=== PATIENT | male | born 1975 | race African-American/Black ===

== ENCOUNTER 2020-04-25 00:38 | Inpatient (IN) | payer MEDICAID, OTHER ==
[~2020-04-25] VITALS: Ht 190.5 cm; Wt 156.5 kg
[2020-04-25 02:06] LABS: *AMPHETAMINES SCREEN URINE NEGATIVE (NEGATIVE); *BARBITURATES SCREEN URINE NEGATIVE (NEGATIVE); *BENZODIAZEPINES SCREEN URINE NEGATIVE (NEGATIVE); *COCAINE SCREEN URINE NEGATIVE (NEGATIVE); CANNABINOID URINE SCREEN NEGATIVE (NEGATIVE); METHADONE URINE SCREEN NEGATIVE (NEGATIVE); OPIATES URINE SCREEN NEGATIVE (NEGATIVE); PHENCYCLIDINE URINE SCREEN NEGATIVE (NEGATIVE)
[2020-04-25 02:16] LABS: CLARITY URINE CLEAR (CLEAR); COLOR URINE YELLOW (YELLOW); KETONES URINE NEGATIVE (NEGATIVE); LEUKOCYTE ESTERASE URINE NEGATIVE (NEGATIVE); NITRITE URINE NEGATIVE (NEGATIVE); OCCULT BLOOD URINE NEGATIVE (NEGATIVE); PROTEIN URINE TRACE (NEGATIVE); SPECIFIC GRAVITY URINE 1.031 (1.005-1.030); UROBILINOGEN URINE 0.2 E.U./dL (0.2-1.0)
[2020-04-25 02:36] LABS: HEMATOCRIT. 40.6 % (42.0-52.0); HEMOGLOBIN. 13.7 g/dL (14.0-18.0); MEAN CORPUSCULAR HEMOGLOBIN 30.9 pg (28.0-32.0); MEAN CORPUSCULAR VOLUME 91.3 fL (80.0-94.0); MEAN PLATELET VOLUME 9.2 fl (7.4-10.4); PLATELET 222 x1000/uL (130-400); RED BLOOD CELL COUNT 4.45 mill/uL (4.7-6.1); RED CELL DISTRIBUTION WIDTH 13.8 % (11.6-14.6)
[2020-04-25 02:42] LABS: CHLORIDE 98 mEq/L (98-107)
[2020-04-25 02:46] LABS: ETHANOL BLOOD < 10 mg/dL
[2020-04-25 02:53] LABS: PARTIAL THROMBOPLASTIN TIME 24.6 sec (23.4-31.0); PROTHROMBIN TIME 10.4 sec (9.6-11.0)
[2020-04-25] MEDS ORDERED: INSULIN LISPRO 100 UNITS/ML SUBCUT NR (03:15)
[2020-04-25] MEDS ORDERED: LEVETIRACETAM 500MG PREMIX 100 ML IV ONE (04:30)
[2020-04-25] MEDS ORDERED: LORAZEPAM 2MG/ML CPJ IV ONE (04:30)
[2020-04-25 05:50] LABS: PLATELET ESTIMATE NORMAL
[2020-04-25 08:30] VITALS: BP 186/104
[2020-04-25] MEDS ORDERED: ENOXAPARIN 40MG/0.4ML SYR SUBCUT SCH (09:00)
[2020-04-25] MEDS ORDERED: IPRATROPIUM/ALBUTEROL 0.5-3(2.5)MG/3ML NEB HHN PRN (09:00)
[2020-04-25] MEDS ORDERED: LEVETIRACETAM 500 MG in SODIUM CHLORIDE 0.9% 100 ML IV SCH (09:00)
[2020-04-25] MEDS ORDERED: ACETAMINOPHEN 325MG TABLET PO PRN (09:00)
[2020-04-25] MEDS ORDERED: DIPHENHYDRAMINE 50MG/ML VIAL IV PRN (09:00)
[2020-04-25] MEDS ORDERED: ONDANSETRON HCL 4MG/2ML INJ IV PRN (09:00)
[2020-04-25 09:30] VITALS: BP 208/113
[2020-04-25] MEDS ORDERED: LEVETIRACETAM 500MG PREMIX 100 ML IV SCH (10:00)
[2020-04-25] MEDS: CLONIDINE 0.1MG TABLET PO PRN ×2 (11:49→16:45)
[2020-04-25] MEDS: ENALAPRIL 1.25MG/ML VIAL 1ML IV PRN ×2 (11:49→16:45)
[2020-04-25] MEDS: ENOXAPARIN 40MG/0.4ML SYR SUBCUT SCH ×2 (11:57→21:09)
[2020-04-25 12:00] VITALS: BP 200/97
[2020-04-25] MEDS: INSULIN GLARGINE UD 100 UNITS/ML SYR SUBCUT SCH ×2 (12:00→21:18)
[2020-04-25 16:00] VITALS: BP 198/122
[2020-04-25] MEDS: PHENYTOIN SODIUM 300MG in SODIUM CHLORIDE 0.9% 50ML IV SCH (17:15)
[2020-04-25 20:00] VITALS: BP 157/106
[2020-04-25] MEDS ORDERED: DEXTROSE 50% WATER 50ML SYRINGE IV PRN (20:00)
[2020-04-25] MEDS: BLOOD SUGAR DIAGNOSTIC STRIP TEST SCH (20:35)
[2020-04-25] MEDS: AMLODIPINE 5MG TABLET PO SCH (21:08)
[2020-04-25] MEDS: INSULIN LISPRO 100 UNITS/ML SUBCUT SCH (21:13)
[2020-04-26] VITALS: BP 168/95
[2020-04-26] MEDS: ENALAPRIL 1.25MG/ML VIAL 1ML IV PRN ×2 (00:37→06:50)
[2020-04-26 04:00] VITALS: BP 188/101
[2020-04-26] MEDS: PHENYTOIN SODIUM 300MG in SODIUM CHLORIDE 0.9% 50ML IV SCH (04:40)
[2020-04-26] MEDS: CLONIDINE 0.1MG TABLET PO PRN ×3 (06:09→21:07)
[2020-04-26] MEDS: BLOOD SUGAR DIAGNOSTIC STRIP TEST SCH ×4 (06:22→20:35)
[2020-04-26 06:44] LABS: BASOPHILS % 1.3 % (0.0-2.0); EOSINOPHILS % 2.7 % (0.0-5.0); HEMATOCRIT. 38.8 % (42.0-52.0); HEMOGLOBIN. 12.8 g/dL (14.0-18.0); MEAN CORPUSCULAR HEMOGLOBIN 29.9 pg (28.0-32.0); MEAN CORPUSCULAR VOLUME 90.7 fL (80.0-94.0); MONOCYTES % 7.3 % (2.0-8.0); NEUTROPHILS % 70.7 % (40.0-76.0); PLATELET 223 x1000/uL (130-400); RED BLOOD CELL COUNT 4.27 mill/uL (4.7-6.1)
[2020-04-26 06:55] LABS: CHLORIDE 105 mEq/L (98-107)
[2020-04-26 07:01] LABS: LDL CHOLESTEROL 92 mg/dL (5-100)
[2020-04-26 07:03] LABS: HDL CHOLESTEROL 39 mg/dL (40-59)
[2020-04-26 08:00] VITALS: BP 168/108
[2020-04-26] MEDS: AMLODIPINE 5MG TABLET PO SCH ×2 (08:42→21:07)
[2020-04-26] MEDS: ENOXAPARIN 40MG/0.4ML SYR SUBCUT SCH ×2 (08:42→21:08)
[2020-04-26] MEDS: INSULIN LISPRO 100 UNITS/ML SUBCUT SCH ×4 (08:44→21:09)
[2020-04-26] MEDS ORDERED: POTASSIUM CHLORIDE 20MEQ/PACKET PO SCH (09:45)
[2020-04-26] MEDS: INSULIN GLARGINE UD 100 UNITS/ML SYR SUBCUT SCH ×2 (10:07→21:10)
[2020-04-26 12:00] VITALS: BP 166/111
[2020-04-26] MEDS: ENALAPRIL 2.5MG/2ML VIAL 2ML IV PRN ×2 (14:28→21:07)
[2020-04-26] MEDS: PHENYTOIN SODIUM EXTENDED 100MG CAPSULE PO SCH ×2 (14:28→21:08)
[2020-04-26 16:00] VITALS: BP 161/102
[2020-04-26 20:00] VITALS: BP 198/126
[2020-04-27] VITALS: BP 178/112
[2020-04-27 04:00] VITALS: BP 180/103
[2020-04-27] MEDS: CLONIDINE 0.1MG TABLET PO PRN ×2 (06:31→17:39)
[2020-04-27] MEDS: PHENYTOIN SODIUM EXTENDED 100MG CAPSULE PO SCH ×3 (06:32→21:06)
[2020-04-27] MEDS: BLOOD SUGAR DIAGNOSTIC STRIP TEST SCH ×4 (06:32→21:10)
[2020-04-27 06:43] LABS: CHLORIDE 106 mEq/L (98-107)
[2020-04-27 06:51] LABS: BASOPHILS % 0.7 % (0.0-2.0); EOSINOPHILS % 3.5 % (0.0-5.0); HEMATOCRIT. 38.7 % (42.0-52.0); HEMOGLOBIN. 13.1 g/dL (14.0-18.0); LYMPHOCYTES % 27.4 % (20.0-50.0); MEAN CORPUSCULAR HEMOGLOBIN 30.5 pg (28.0-32.0); MEAN CORPUSCULAR VOLUME 90.2 fL (80.0-94.0); MEAN PLATELET VOLUME 8.9 fl (7.4-10.4); NEUTROPHILS % 61.4 % (40.0-76.0); PLATELET 213 x1000/uL (130-400); RED BLOOD CELL COUNT 4.29 mill/uL (4.7-6.1); RED CELL DISTRIBUTION WIDTH 13.9 % (11.6-14.6)
[2020-04-27 08:28] VITALS: BP 173/112
[2020-04-27] MEDS: AMLODIPINE 5MG TABLET PO SCH ×2 (08:49→21:08)
[2020-04-27] MEDS: ENOXAPARIN 40MG/0.4ML SYR SUBCUT SCH ×2 (08:50→21:09)
[2020-04-27] MEDS: INSULIN LISPRO 100 UNITS/ML SUBCUT SCH ×4 (09:08→21:09)
[2020-04-27] MEDS: INSULIN GLARGINE UD 100 UNITS/ML SYR SUBCUT SCH ×2 (10:23→21:10)
[2020-04-27 11:49] VITALS: BP 185/113
[2020-04-27] MEDS: ENALAPRIL 2.5MG/2ML VIAL 2ML IV PRN (11:49)
[2020-04-27] MEDS ORDERED: POTASSIUM CHLORIDE 20MEQ TABLET SR PO NR (12:15)
[2020-04-27] MEDS: HYDRALAZINE HCL 25MG TABLET PO SCH ×2 (15:05→21:08)
[2020-04-27 15:54] VITALS: BP 180/110
[2020-04-27 20:00] VITALS: BP 213/106
[2020-04-28] VITALS (7 sets, daily range): BP systolic 163–195; BP diastolic 90–115
[2020-04-28] MEDS: ENALAPRIL 2.5MG/2ML VIAL 2ML IV PRN ×3 (00:43→20:30)
[2020-04-28] MEDS: HYDRALAZINE HCL 25MG TABLET PO SCH (05:58)
[2020-04-28] MEDS: PHENYTOIN SODIUM EXTENDED 100MG CAPSULE PO SCH ×3 (05:58→22:50)
[2020-04-28 06:18] LABS: BASOPHILS % 0.8 % (0.0-2.0); EOSINOPHILS % 3.2 % (0.0-5.0); HEMATOCRIT. 38.4 % (42.0-52.0); LYMPHOCYTES % 25.3 % (20.0-50.0); MEAN CORPUSCULAR HEMOGLOBIN 30.6 pg (28.0-32.0); MEAN CORPUSCULAR VOLUME 90.5 fL (80.0-94.0); MEAN PLATELET VOLUME 9.1 fl (7.4-10.4); MONOCYTES % 8.4 % (2.0-8.0); NEUTROPHILS % 62.3 % (40.0-76.0); PLATELET 213 x1000/uL (130-400); RED BLOOD CELL COUNT 4.25 mill/uL (4.7-6.1)
[2020-04-28 06:44] LABS: CHLORIDE 105 mEq/L (98-107)
[2020-04-28] MEDS ORDERED: POTASSIUM CHLORIDE 20MEQ TABLET SR PO SCH (08:00)
[2020-04-28] MEDS: AMLODIPINE 5MG TABLET PO SCH ×2 (08:12→20:30)
[2020-04-28] MEDS: CLONIDINE 0.1MG TABLET PO PRN ×3 (08:12→22:50)
[2020-04-28] MEDS: ENOXAPARIN 40MG/0.4ML SYR SUBCUT SCH ×2 (08:13→20:35)
[2020-04-28] MEDS: INSULIN LISPRO 100 UNITS/ML SUBCUT SCH ×4 (08:14→21:00)
[2020-04-28] MEDS: BLOOD SUGAR DIAGNOSTIC STRIP TEST SCH ×4 (08:15→20:41)
[2020-04-28] MEDS: INSULIN GLARGINE UD 100 UNITS/ML SYR SUBCUT SCH ×2 (11:02→22:52)
[2020-04-28] MEDS ORDERED: LISINOPRIL 5MG TABLET PO SCH (11:15)
[2020-04-28] MEDS: HYDRALAZINE HCL 100MG TABLET PO SCH ×2 (13:53→22:50)
[2020-04-28] MEDS ORDERED: LORAZEPAM 2MG/ML CPJ IV PRN (14:30)
[2020-04-28] MEDS ORDERED: LISI-186 PO (14:34)
[2020-04-28] MEDS ORDERED: LANTUSUD SUBCUT (14:34)
[2020-04-28] MEDS ORDERED: HYDR100T26 PO ×2 (14:34→19:46)
[2020-04-28] MEDS ORDERED: PHEN100C4 PO ×2 (14:34→19:45)
[2020-04-28] MEDS ORDERED: AMLO5TAB88 PO ×2 (14:34→19:47)
[2020-04-28] MEDS ORDERED: PHENYTOIN SODIUM 500MG in SODIUM CHLORIDE 0.9% 50ML IV SCH (16:00)
[2020-04-28] MEDS ORDERED: INSU100I24 SQ (19:40)
[2020-04-28] MEDS ORDERED: LISI-186 MT (19:48)
[2020-04-29] MEDS ORDERED: LISINOPRIL 5MG TABLET PO SCH (09:00)
== END 2020-04-29 00:07 | disposition home or self-care (01) | DRG 53 ==
LOC: ER 00:38 → 6WST 05:47 → ENRESERV 07:26
PROVIDERS: ADMIT Internal Medicine; ATTEND Internal Medicine
DX: G40.909 Epilepsy, unspecified, not intractable, without status epilepticus (principal); I16.0 Hypertensive urgency; E11.65 Type 2 diabetes mellitus with hyperglycemia; E66.2 Morbid (severe) obesity with alveolar hypoventilation; E78.5 Hyperlipidemia, unspecified; I10 Essential (primary) hypertension; Z68.41 Body mass index [BMI] 40.0-44.9, adult; Z91.14 Patient's other noncompliance with medication regimen; Z88.8 Allergy status to other drugs, medicaments and biological substances; Z79.899 Other long term (current) drug therapy; Z86.73 Personal history of transient ischemic attack (TIA), and cerebral infarction without residual deficits
CPT/HCPCS: 36415; 71045; 80048; 80053; 80061; 80185; 80305; 80320; 81003; 82010; 82140; 82962; 83036; 84443; 84484; 85025; 86850; 86900; 93005; 93306; 93970; 99285; C1893; J1165; J1650; J1815; J1953; J2060; J3490; G0480